=== PATIENT | female | born 1995 | race Caucasian/White ===

== ENCOUNTER 2021-09-28 09:31 | Outpatient (CLI) | payer OTHER ==
[2021-09-28] MEDS ORDERED: GADOBUTROL 7.5 MMOL/7.5 ML VIAL ONE (10:19)
--- NOTE | 2021-09-28 11:35 | MRI Report ---
PROCEDURE: Brain W/WO INDICATIONS: NEOPLASM OF UNSPEICFIED BEHAVIOR OF BRAIN CONTRAST: IV CONTRAST: Gadavist ml: 6.9 TECHNIQUE: Noncontrast axial T1 spin echo, axial T2 fast spin echo, sagittal and axial FLAIR, coronal T2 fast sp in echo, axial gradient echo, axial diffusion and ADC through the brain. After the administration of contrast, axial and coronal T1 spin echo with fat saturation through the brain. COMPARISON: None. FINDINGS: Image quality: Excellent. CSF spaces: Basal cisterns are patent. No extra-axial fluid collections. Ventricles are normal in size and shape. Brain: No midline shift. No intracranial bleeds or masses. No abnormal intracranial enhancement. There is cerebral volume loss for age. There is periventricular white matter chronic small vessel is chemic change. The brainstem appears normal. Diffusion-weighted images demonstrate no acute ischemi c insults. No chronic ischemic insults. Normal intravascular flow voids are present. Skull and face: Calvarial marrow is normal in signal. Orbits appear normal. Sinuses: Small right maxillary sinus retention cyst. Sinuses and mastoids otherwise appear clear. IMPRESSION: 1. No evidence of intracranial neoplasm. If there is prior outside imaging or clinical data documenti ng an intracranial neoplasm, comparison with those studies/information would be helpful for further a ssessment. 2. No acute process. No recent infarct. Reviewed by: Analia Witt MD on 09/28/2021 11:34 AM PDT Approved by: Analia Witt MD on 09/28/2021 11:34 AM PDT Station ID: [id number]
[2021-09-28] MEDS ORDERED: GADOBUTROL 7.5 MMOL/7.5 ML VIAL IVP ONE (16:18)
== END 2021-09-28 09:32 | disposition home or self-care (01) ==
LOC: DI 09:31
PROVIDERS: ATTEND Student in an Organized Health Care Education/Training Program
DX: R93.9 Diagnostic imaging inconclusive due to excess body fat of patient (principal); G93.0 Cerebral cysts; E83.01 Wilson's disease
CPT/HCPCS: 70553; A9585

== ENCOUNTER 2022-02-14 10:45 | Emergency (ER) | payer OTHER ==
[2022-02-14 10:57] VITALS: BP 127/69
--- NOTE | 2022-02-14 11:31 | ED Physician Documentation ---
History of Present Illness - Stated complaint Stated Complaint: BLOODY NOSE, CHEST PX, WEAKNESS - Chief complaint Chief Complaint: Cardiac - History obtained from History obtained from: Patient - History of Present Illness Timing: How many weeks ago (2) - Additonal information Additional information: 26-year-old female presents to the emergency department with cough, nasal congestion and intermittent dyspnea for the past several weeks. She was treated for potential ear infection with antibiotics. She is unsure which 1. She took all antibiotics until gone but is still having a cough and congestion. Occasionally has burning in her chest. Nothing makes it better or worse. Denies any possibility of . Is not breast-feeding. Review of Systems Ten Systems: 10 systems reviewed and negative Constitutional: denies: Fever, Chills Ears: denies: Ear pain Nose: reports: Rhinorrhea / runny nose, Congestion, Other (Occasionally there is blood in her mucus) Cardiac: reports: Chest pain / pressure (States she has a burning in her chest when she coughs). denies: Palpitations Respiratory: reports: Dyspnea, Cough. denies: Wheezing GI: denies: Nausea, Vomiting PD PAST MEDICAL HISTORY - Past Medical History Past Medical History: Yes - Past Surgical History Past Surgical History: No - Present Medications Home Medications: Ambulatory Orders Medication Instructions Recorded Confirmed Cetirizine HCl/Pseudoephedrine 1 each PO BID PRN #30 tab 02/14/22 [Zyrtec-D Tablet] Ibuprofen [Motrin] 800 mg PO Q8H PRN #30 tablet 02/14/22 Propranolol [Inderal] 40 mg PO DAILY 02/14/22 02/14/22 - Allergies Allergies/Adverse Reactions: Allergies Allergy/AdvReac Type Severity Reaction Status Date / Time Penicillins Allergy Rash Verified 02/14/22 10:58 tramadol Allergy Anxiety Verified 02/14/22 10:58 - Living Situation Living Situation: reports: With family Living Arrangement: reports: At home - Social History Does the pt smoke?: No Does the pt have substance abuse?: No - Family History Family history: reports: Non contributory PD ED PE NORMAL - Vitals Vital signs reviewed: Yes - General General: Alert and oriented X 3, No acute distress - HEENT HEENT: PERRL, Ears normal, Moist mucous membranes, Pharynx benign - Neck Neck: Supple, no meningeal sign - Cardiac Cardiac: RRR, Strong equal pulses - Respiratory Respiratory: No respiratory distress, Clear bilaterally - Abdomen Abdomen: Soft, Non tender, Non distended - Back Back: No spinal TTP - Derm Derm: Warm and dry, No rash - Extremities Extremities: No edema - Neuro Neuro: Alert and oriented X 3 - Psych Psych: Normal mood, Normal affect Results - Vitals Vitals: Vital Signs - 24 hr 02/14/22 10:49 Temperature 36.7 C Heart Rate 65 Respiratory 16 Rate Blood Pressure 127/69 O2 Saturation 100 Oxygen O2 Source Room air - EKG (time done) 1051 Rate: Rate (enter#) (67) Rhythm: NSR [place]: Normal Intervals: Normal MT QRS: Normal Ischemia: Normal ST segments - Labs Labs: Laboratory Tests 02/14/22 11:50 Nasal Adenovirus (PCR) DETECTED A Nasal B. parapertussis DNA (PCR) NOT DETECTED Nasal Coronavir 229E PCR NOT DETECTED Nasal Coronavir HKU1 PCR NOT DETECTED Nasal Coronavir NL63 PCR NOT DETECTED Nasal Coronavir OC43 PCR NOT DETECTED Nasal Enterovir/Rhinovir PCR NOT DETECTED Nasal Influenza B PCR NOT DETECTED Nasal Influenza A PCR NOT DETECTED Nasal Parainfluen 1 PCR NOT DETECTED Nasal Parainfluen 2 PCR NOT DETECTED Nasal Parainfluen 3 PCR NOT DETECTED Nasal Parainfluen 4 PCR NOT DETECTED Nasal RSV (PCR) NOT DETECTED Nasal B.pertussis DNA PCR NOT DETECTED Nasal C.pneumoniae (PCR) NOT DETECTED Trung Human Metapneumo PCR NOT DETECTED Nasal M.pneumoniae (PCR) NOT DETECTED Nasal SARS-CoV-2 (PCR) NOT DETECTED - Rads (name of study) cxr Radiology: Final report received, See rad report PD MEDICAL DECISION MAKING - ED course Complexity details: reviewed results, re-evaluated patient, considered differential, d/w patient ED course: Chest x-ray does not show any acute abnormalities. She is positive for rhinovirus. Patient is well-appearing, nontoxic. Afebrile. No hypoxia. No respiratory distress. No indication for antibiotics. We will continue supportive care and have her follow-up with her doctor. Patient counseled regarding signs and symptoms for which I believe and urgent re-evaluation would be necessary. Patient with good understanding of and agreement to plan and is comfortable going home at this time This document was made in part using voice recognition software. While efforts are made to proofread this document, sound alike and grammatical errors may occur. Departure - Departure Disposition: Home, Self Care Clinical Impression: Adenovirus infection Condition: Good Instructions: ED Viral Syndrome Follow-Up: your,doctor in 1 week [Other] [facility] [place] [Provider Group] [facility] [place] [Provider Group] Prescriptions: Ibuprofen [Motrin] 800 mg PO Q8H PRN #30 tablet PRN Reason: PAIN &/OR FEVER Cetirizine HCl/Pseudoephedrine [Zyrtec-D Tablet] 1 each PO BID PRN #30 tab PRN Reason: nasal congestion Comments: Your prescriptions were sent to [facility] in [place]. Please follow-up with your doctor for further care. Please return if you worsen. You have tested positive for adenovirus today. This does not require antibiotics. Maureen recetas fueron enviadas a [facility] en [place]. Por favor, debby un seguimiento con brito mdico para recibir atencin adicional. Por favor, devulvelo si empeoras. Chen dado positivo por adenovirus horobinson. Piqua no requiere antibiticos. Forms: Activity restrictions Discharge Date/Time: 02/14/22 13:21
--- NOTE | 2022-02-14 12:32 | XRAY Report ---
PROCEDURE: Chest 2 View X-Ray INDICATIONS: cough TECHNIQUE: 2 views of the chest were acquired. COMPARISON: None FINDINGS: Surgical changes and devices: None. Lungs and pleura: No pleural effusions or pneumothorax. Lungs are clear. Mediastinum: Mediastinal contours are normal. Heart size is normal. Bones and chest wall: No suspicious bony abnormalities. Soft tissues appear unremarkable. IMPRESSION: No acute cardiopulmonary disease. Reviewed by: Ingrid Caballero MD on 02/14/2022 12:31 PM PST Approved by: Ingrid Caballero MD on 02/14/2022 12:31 PM PST Station ID: [id number]
[2022-02-14 13:01] LABS: B. PARAPERTUSSIS- RESP PCR PAN NOT DETECTED; B. PERTUSSIS- RESP PCR PANEL NOT DETECTED; C. PNEUMONIAE- RESP PCR PANEL NOT DETECTED; CORONAVIRUS 229E-RESP PCR NOT DETECTED; CORONAVIRUS HKU1-RESP PCR NOT DETECTED; CORONAVIRUS NL63-RESP PCR NOT DETECTED; CORONAVIRUS OC43-RESP PCR NOT DETECTED; HUMAN METAPNEUMOVIRUS NOT DETECTED; INFLUENZA A- RESP PCR PANEL NOT DETECTED; INFLUENZA B - RESP PCR PANEL NOT DETECTED; M. PNEUMONIAE- RESP PCR PANEL NOT DETECTED; PARAINFLUENZA VIRUS 1 NOT DETECTED; PARAINFLUENZA VIRUS 2 NOT DETECTED; PARAINFLUENZA VIRUS 3 NOT DETECTED; PARAINFLUENZA VIRUS 4 NOT DETECTED; RHINOVIRUS/ENTEROVIRUS NOT DETECTED; RSV- RESP PCR PANEL NOT DETECTED; SARS-CoV-2 -RESP PCR PANEL NOT DETECTED
== END 2022-02-14 13:21 | disposition home or self-care (01) ==
LOC: ED 10:45
DX: B34.0 Adenovirus infection, unspecified (principal); Z20.822 Contact with and (suspected) exposure to COVID-19
CPT/HCPCS: 87633; 93005; 99284

== ENCOUNTER 2022-07-17 10:16 | Outpatient (CLI) | payer OTHER ==
[2022-07-18 08:47] LABS: BILIRUBIN,URINE NEGATIVE (NEGATIVE); GLUCOSE, URINE (UA) NEGATIVE (NEGATIVE); KETONES,URINE (UA) NEGATIVE (NEGATIVE); LEUKOCYTE ESTERASE, URINE NEGATIVE (NEGATIVE); NITRITE,URINE NEGATIVE (NEGATIVE); OCCULT BLOOD,URINE NEGATIVE (NEGATIVE); PROTEIN,URINE NEGATIVE (NEGATIVE); UROBILINOGEN,URINE 0.2 (NORMAL) E.U./dL (NORMAL)
[2022-07-18 09:07] LABS: BACTERIA,URINE None Seen /HPF (None Seen); CLARITY,URINE CLEAR (CLEAR); RBC,URINE 0-5 /HPF (0-5); SQUAMOUS EPITHELIAL CELL,UR FEW Squamous (<= Few); WBC,URINE 0-3 /HPF (0-5)
[2022-07-18 11:43] LABS: BASOPHILS # (AUTO) 0.1 10^3/uL (0.0-0.1); BASOPHILS % (AUTO) 0.6 %; EOSINOPHILS # (AUTO) 0.1 10^3/uL (0.0-0.7); EOSINOPHILS % (AUTO) 1.3 %; HCT - HEMATOCRIT 38.1 % (37.0-47.0); HGB - HEMOGLOBIN 12.4 g/dL (12.0-16.0); LYMPHOCYTES # (AUTO) 3.3 10^3/uL (1.5-3.5); LYMPHOCYTES % (AUTO) 36.7 %; MEAN CORPUSCULAR HGB CONC 32.5 g/dL (32.0-36.0); MEAN CORPUSCULAR VOLUME 89.2 fL (81.0-99.0); MEAN PLATELET VOLUME 9.8 fL (7.9-10.8); MONOCYTES # (AUTO) 0.8 10^3/uL (0.0-1.0); MONOCYTES % (AUTO) 8.4 %; NEUTROPHILS # (AUTO) 4.7 10^3/uL (1.5-6.6); NEUTROPHILS % (AUTO) 52.4 %; PLT - PLATELET COUNT 327 10^3/uL (130-450); RED BLOOD COUNT 4.27 10^6/uL (4.20-5.40); RED CELL DISTRIBUTION WIDTH 13.3 % (12.0-15.0)
[2022-07-19 06:11] LABS: HBsAG SCREEN Negative (Negative); HCV AB Non Reactive (Non Reactive); HIV SCREEN 4TH GENERATION Non Reactive (Non Reactive); RPR Non Reactive (Non Reactive)
[2022-07-21 10:09] LABS: VARICELLA-ZOSTER AB IGG 2755 index (Immune >165)
== END 2022-07-17 10:17 | disposition home or self-care (01) ==
LOC: LAB 10:16
PROVIDERS: ATTEND Obstetrics & Gynecology
DX: Z34.90 Encounter for supervision of normal pregnancy, unspecified, unspecified trimester (principal)
CPT/HCPCS: 36415; 81001; 85025; 86592; 86762; 86787; 86803; 86850; 86900; 86901; 87086; 87340; 87389

== ENCOUNTER 2022-07-25 22:01 | Outpatient (CLI) | payer OTHER ==
--- NOTE | 2022-07-26 09:05 | Ultrasound Report ---
PROCEDURE: OB First Trimester w/TV INDICATIONS: POSITIVE TEST OUTSIDE/PRIOR DATING DATA: Last menstrual period (LMP): 06/01/2022. LMP-based estimated date of delivery (ANKUR): 03/08/2023. First dating scan (date and location): Today 07/25/2022. Estimated date of delivery (ANKUR) from first dating scan: March 06, 2023 TECHNIQUE: Real-time scanning was performed of the fetus and maternal pelvic organs, with image documentation. Endovaginal scanning was also performed to better visualize the fetus and maternal ovaries. COMPARISON: None relevant FINDINGS: Heart rate is 162 bpm. Mean gestational sac diameter is 2.3. Barksdale-rump length is 1.58 cm corresponding to an ultrasound age of 8 weeks. Bilateral ovarian cysts are present. There is a subcho rionic hemorrhage measuring 1.8 x 1.7 x 2.1 cm. There is also a fibroid measuring 2.1 x 1.9 cm. IMPRESSION: Living intrauterine gestation at 8 weeks of ultrasound age, consistent with reported LMP. Reviewed by: George Messer MD on 07/26/2022 9:04 AM PDT Approved by: George Messer MD on 07/26/2022 9:04 AM PDT Station ID: [id number]
== END 2022-07-25 22:02 | disposition home or self-care (01) ==
LOC: DI 22:01
PROVIDERS: ATTEND Obstetrics & Gynecology
DX: Z34.91 Encounter for supervision of normal pregnancy, unspecified, first trimester (principal)

== ENCOUNTER 2022-08-17 08:00 | Outpatient (CLI) | payer OTHER ==
[2022-08-17 20:56] LABS: CHLAMYDIA TRACHOMATIS DNA NEGATIVE (NEGATIVE); NEISSERIA GONORRHOEAE DNA NEGATIVE (NEGATIVE); TRICHOMONAS VAGINALIS DNA NEGATIVE (NEGATIVE)
== END 2022-08-17 23:59 | disposition home or self-care (01) ==
LOC: LAB 08:00
PROVIDERS: ATTEND Obstetrics & Gynecology
DX: Z11.3 Encounter for screening for infections with a predominantly sexual mode of transmission (principal)
CPT/HCPCS: 87491; 87591; 87661

== ENCOUNTER 2022-10-23 06:56 | Outpatient (CLI) | payer OTHER ==
--- NOTE | 2022-10-23 12:49 | Ultrasound Report ---
PROCEDURE: OB Detailed Eval INDICATIONS: SUPERVISION OF OUTSIDE/PRIOR DATING DATA: Last menstrual period (LMP): 05/05/2022. LMP-based estimated date of delivery (ANKUR): 03/08/2022. First dating scan (date and location): 07/25/2022. Estimated date of delivery (ANKUR) from first dating scan: 03/06/2023. The below data below was generated using the ultrasound ANKUR of 03/06/2023 TECHNIQUE: Real-time scanning was performed of the fetus, with image documentation and biometric measurements. Endovaginal scanning: Not performed COMPARISON: OB Ultrasound 07/25/2022 FINDINGS: General: A single living intrauterine gestation is present. Presentation: Vertex Placenta: Placental position is anterior, without previa. Amniotic fluid index: 12.1 cm, within normal limits for gestational age. heart rate: 132 beats per minute. Maternal cervical canal: 3.6 cm long; normal length is 2.5 cm or more. biometrics: Biparietal diameter: 4.9 cm, 20 weeks 5 days Head circumference: 18.2 cm, 20 weeks 4 days Abdominal circumference: 15.8 cm, 20 weeks 6 days Femur length: 3.4 cm, 20 weeks 5 days Estimated gestational age from initial scan: 20 weeks 6 days Composite gestational age from present scan: 20 weeks 5 days Estimated weight and percentile: 376 g, 40% Measurement variability in biometric dating: +/- 10 days from 12-20 weeks gestation, +/- 2 weeks from 20-30 weeks gestation, +/- 3 weeks at 30 weeks gestation or later. Anatomic survey: Neuro: Ventricles are normal at less than 10 mm. Cisterna magna is normal at 3-11 mm. Cerebellum i s normal in size and morphology. Nuchal skin fold: Normal at less than 6 mm between 14 and 20 weeks gestational age. Face: Nose and lips, facial profile are normal. Spine: No evidence for spina bifida. Heart: 4-chambered heart is present, with normal ventricular outflow tracts. Diaphragm: Diaphragm is intact. Stomach: Left-sided stomach is present. Kidneys: No hydronephrosis. Normal is less than 5 mm in 2nd trimester, less than 7 mm in 3rd trimester. Cord: 3 vessel cord has orthotopic insertion. Bladder: Normal in size. Extremities: All 4 extremities are visualized. IMPRESSION: 1.Single live intrauterine at 20 weeks and 5 days. 2.Normal anatomy scan. Reviewed by: Shamir Robertson MD on 10/23/2022 12:48 PM PDT Approved by: Shamir Robertson MD on 10/23/2022 12:48 PM PDT Station ID: [id number]
== END 2022-10-23 06:57 | disposition home or self-care (01) ==
LOC: DI 06:56
PROVIDERS: ATTEND Nurse Practitioner
DX: O99.891 Other specified diseases and conditions complicating pregnancy (principal); R30.0 Dysuria; Z3A.20 20 weeks gestation of pregnancy
CPT/HCPCS: 81001; 87086

== ENCOUNTER 2022-10-23 08:00 | Outpatient (CLI) | payer OTHER ==
[2022-10-23 12:07] LABS: BILIRUBIN,URINE NEGATIVE (NEGATIVE); GLUCOSE, URINE (UA) NEGATIVE (NEGATIVE); KETONES,URINE (UA) NEGATIVE (NEGATIVE); LEUKOCYTE ESTERASE, URINE NEGATIVE (NEGATIVE); NITRITE,URINE NEGATIVE (NEGATIVE); OCCULT BLOOD,URINE NEGATIVE (NEGATIVE); PROTEIN,URINE NEGATIVE (NEGATIVE); UROBILINOGEN,URINE 0.2 (NORMAL) E.U./dL (NORMAL)
[2022-10-23 12:19] LABS: BACTERIA,URINE Rare /HPF (None Seen); CLARITY,URINE CLEAR (CLEAR); RBC,URINE None Seen /HPF (0-5); SQUAMOUS EPITHELIAL CELL,UR FEW Squamous (<= Few); WBC,URINE 0-3 /HPF (0-5)
== END 2022-10-23 23:59 | disposition home or self-care (01) ==
LOC: LAB.WC 08:00
PROVIDERS: ATTEND Obstetrics & Gynecology
DX: O99.891 Other specified diseases and conditions complicating pregnancy (principal); R30.0 Dysuria
CPT/HCPCS: 81001; 87086

== ENCOUNTER 2022-11-07 17:57 | Emergency (ER) | payer OTHER ==
[2022-11-07 18:14] VITALS: BP 119/81; O2SAT 98
--- NOTE | 2022-11-07 18:19 | ED Physician Documentation ---
History of Present Illness - Stated complaint Stated Complaint: PREG/COUGH/CHEST PX - Chief complaint Chief Complaint: General - History obtained from History obtained from: Patient - Additonal information Additional information: G1, P0 22 weeks gestation has been sick since yesterday with fever, bilateral ear pain and productive cough. No sick contacts. PD PAST MEDICAL HISTORY - Past Surgical History Past Surgical History: No - Present Medications Home Medications: Ambulatory Orders Medication Instructions Recorded Confirmed Azithromycin [Zithromax] 1 tab PO DAILY #6 tablet 11/07/22 Pnv No.95/Ferrous Fum/Folic AC 1 each PO DAILY 11/07/22 11/07/22 [ Tablet] guaiFENesin/CODEINE [Robitussin AC] 5 - 10 ml PO Q6H PRN #120 ml 11/07/22 - Allergies Allergies/Adverse Reactions: Allergies Allergy/AdvReac Type Severity Reaction Status Date / Time Penicillins Allergy Rash Verified 11/07/22 17:59 tramadol Allergy Anxiety Verified 11/07/22 17:59 - Social History Does the pt smoke?: No Smoking Status: Never smoker Does the pt have substance abuse?: No PD ED PE NORMAL - Vitals Vital signs reviewed: Yes - General General: Alert and oriented X 3, No acute distress - HEENT HEENT: Pharynx benign, Other (B OM) - Cardiac Cardiac: RRR, No murmur - Respiratory Respiratory: No respiratory distress, Clear bilaterally - Abdomen Abdomen: Non tender - Neuro Neuro: Alert and oriented X 3, Normal speech Results - Vitals Vitals: Vital Signs - 24 hr 11/07/22 18:00 Temperature 36.7 C Heart Rate 87 Respiratory 18 Rate Blood Pressure 119/81 H O2 Saturation 98 Oxygen O2 Source Room air Departure - Departure Disposition: 01 Home, Self Care Clinical Impression: BOM (bilateral otitis media) Qualifiers: Otitis media type: suppurative Chronicity: acute Recurrence: not specified as recurrent Spontaneous tympanic membrane rupture: without spontaneous rupture Qualified Code(s): H66.003 - Acute suppurative otitis media without spontaneous rupture of ear drum, bilateral Condition: Good Record reviewed to determine appropriate education?: Yes Instructions: ED Otitis Media Acute Adult Prescriptions: guaiFENesin/CODEINE [Robitussin AC] 5 - 10 ml PO Q6H PRN #120 ml PRN Reason: Cough Azithromycin [Zithromax] 1 tab PO DAILY #6 tablet Comments: I sent your prescriptions electronically to [facility] in [place]. Return if not better in a few days, anytime if worse. You can take Tylenol for the aches and pains. You have a Covid test pending. You need to self quarantine until the result is done and negative. Do not leave your house. Do not get near anybody. We will call with a positive result, the fastest way to get a negative result for confirmation though is to go to the hospital website at [email or web address], click on the my [facility] tab and sign up for the patient portal. Forms: PCP List, Activity restrictions
--- OUTSIDE RECORDS SUMMARY | 2022-11-07 18:25 | EXTERNAL MEDICAL SUMMARY RPT | Continuity of Care Document ---
Author Name Unknown Address [address] [place] [address] Phone Organization [facility] Address [address] [phone] Phone Problems date description facility 2022-08-15 18:31 [facility]ad[facility] 2022-09-11 16:24 [facility] 2022-09-12 09:56 [facility] 2022-09-13 16:28 [facility] Results/Labs test date facility value unit notes
[2022-11-07 19:27] LABS: B. PARAPERTUSSIS- RESP PCR PAN NOT DETECTED; B. PERTUSSIS- RESP PCR PANEL NOT DETECTED; C. PNEUMONIAE- RESP PCR PANEL NOT DETECTED; CORONAVIRUS 229E-RESP PCR NOT DETECTED; CORONAVIRUS HKU1-RESP PCR NOT DETECTED; CORONAVIRUS NL63-RESP PCR NOT DETECTED; CORONAVIRUS OC43-RESP PCR NOT DETECTED; HUMAN METAPNEUMOVIRUS NOT DETECTED; INFLUENZA A- RESP PCR PANEL NOT DETECTED; INFLUENZA B - RESP PCR PANEL NOT DETECTED; M. PNEUMONIAE- RESP PCR PANEL NOT DETECTED; PARAINFLUENZA VIRUS 1 NOT DETECTED; PARAINFLUENZA VIRUS 2 NOT DETECTED; PARAINFLUENZA VIRUS 3 NOT DETECTED; PARAINFLUENZA VIRUS 4 NOT DETECTED; RHINOVIRUS/ENTEROVIRUS NOT DETECTED; RSV- RESP PCR PANEL NOT DETECTED; SARS-CoV-2 -RESP PCR PANEL NOT DETECTED
== END 2022-11-07 18:29 | disposition home or self-care (01) ==
LOC: ED 17:57
DX: H66.003 Acute suppurative otitis media without spontaneous rupture of ear drum, bilateral (principal); Z20.822 Contact with and (suspected) exposure to COVID-19
CPT/HCPCS: 87633; 99283

== ENCOUNTER 2022-11-11 07:18 | Outpatient (CLI) | payer OTHER ==
--- NOTE | 2022-11-11 10:32 | Ultrasound Report ---
PROCEDURE: Abdomen Complete INDICATIONS: ABD PAIN IN TECHNIQUE: Real-time scanning was performed of the abdominal and retroperitoneal organs, with image documentatio n. COMPARISON: None. FINDINGS: Liver: Liver is normal in size and homogeneous in echotexture. Gallbladder: Unremarkable. Biliary ducts: Intrahepatic bile ducts are non-dilated. Extrahepatic bile duct caliber measures 2 m m. Normal is 6-7 mm or less in diameter, or 10 mm or less post-cholecystectomy. Pancreas: Visualized portions of the pancreas are sonographically normal. Spleen: Spleen is normal in size and homogeneous in echotexture. Kidneys: Kidneys are normal in size and echotexture. Right kidney measures 9.5 cm long; left kidney measures 10.6 cm long. Focal echogenicity noted in the lower pole left kidney measures [address] Aorta: Visualized aorta is normal in caliber at less than 3 cm. Iliacs: Proximal common iliac arteries are normal in caliber at less than 2.5 cm. IVC: Intrahepatic inferior vena cava is patent. Miscellaneous: No free abdominal fluid. IMPRESSION: No acute ultrasound findings. No hydronephrosis. 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
== END 2022-11-11 07:19 | disposition home or self-care (01) ==
LOC: DI 07:18
PROVIDERS: ATTEND Obstetrics & Gynecology
DX: O99.891 Other specified diseases and conditions complicating pregnancy (principal); R10.10 Upper abdominal pain, unspecified; Z3A.00 Weeks of gestation of pregnancy not specified

== ENCOUNTER 2022-12-12 17:15 | Outpatient (CLI) | payer OTHER ==
[2022-12-12 20:42] LABS: HCT - HEMATOCRIT 37.1 % (37.0-47.0); HGB - HEMOGLOBIN 12.1 g/dL (12.0-16.0); MEAN CORPUSCULAR HEMOGLOBIN 29.7 pg (27.0-31.0); MEAN CORPUSCULAR HGB CONC 32.6 g/dL (32.0-36.0); MEAN CORPUSCULAR VOLUME 91.2 fL (81.0-99.0); MEAN PLATELET VOLUME 9.8 fL (7.9-10.8); RED BLOOD COUNT 4.07 10^6/uL (4.20-5.40); RED CELL DISTRIBUTION WIDTH 13.6 % (12.0-15.0); WHITE BLOOD COUNT 9.6 x10^3/uL (4.8-10.8)
== END 2022-12-12 17:16 | disposition home or self-care (01) ==
LOC: LAB.N 17:15
PROVIDERS: ATTEND Obstetrics & Gynecology
DX: Z34.90 Encounter for supervision of normal pregnancy, unspecified, unspecified trimester (principal)
CPT/HCPCS: 36415; 82950; 85025; 85027; 86850

== ENCOUNTER 2023-01-29 08:00 | Outpatient (CLI) | payer OTHER ==
[2023-01-29 16:09] LABS: BILIRUBIN,URINE NEGATIVE (NEGATIVE); GLUCOSE, URINE (UA) NEGATIVE (NEGATIVE); KETONES,URINE (UA) NEGATIVE (NEGATIVE); LEUKOCYTE ESTERASE, URINE NEGATIVE (NEGATIVE); NITRITE,URINE NEGATIVE (NEGATIVE); OCCULT BLOOD,URINE NEGATIVE (NEGATIVE); PROTEIN,URINE NEGATIVE (NEGATIVE); UROBILINOGEN,URINE 0.2 (NORMAL) E.U./dL (NORMAL)
[2023-01-29 16:23] LABS: BACTERIA,URINE None Seen /HPF (None Seen); CLARITY,URINE CLEAR (CLEAR); RBC,URINE 0-5 /HPF (0-5); SQUAMOUS EPITHELIAL CELL,UR RARE Squamous (<= Few); WBC,URINE 0-3 /HPF (0-5)
== END 2023-01-29 23:59 | disposition home or self-care (01) ==
LOC: LAB.WC 08:00
PROVIDERS: ATTEND Obstetrics & Gynecology
DX: Z34.90 Encounter for supervision of normal pregnancy, unspecified, unspecified trimester (principal); Z3A.32 32 weeks gestation of pregnancy
CPT/HCPCS: 81001; 87077; 87086

== ENCOUNTER 2023-02-12 08:00 | Outpatient (CLI) | payer OTHER | END 2023-02-12 23:59 | disposition home or self-care (01) | LOC: LAB.WC 08:00 | PROVIDERS: ATTEND Obstetrics & Gynecology | DX: Z36.85 Encounter for antenatal screening for Streptococcus B (principal) | CPT/HCPCS: 87081; 87797 ==

== ENCOUNTER 2023-02-28 02:07 | Outpatient (CLI) | payer OTHER ==
[2023-02-28 02:47] VITALS: O2SAT 99
[2023-02-28 05:40] VITALS: BP 123/73
--- NOTE | 2023-03-13 16:24 | PROCEDURE REPORT ---
- HPI Current EDU 03/08/23 Gestation 38 Weeks and 6 Days 1 Para 0 Vital Signs Temperature 98.8 F 02/28/23 02:23 Heart Rate 75 02/28/23 02:23 Respiratory Rate 18 02/28/23 02:23 Blood Pressure 124/77 02/28/23 02:23 O2 Saturation 99 02/28/23 02:23 Temperature 98.8 F 02/28/23 05:15 Heart Rate 62 02/28/23 05:15 Respiratory Rate 18 02/28/23 05:15 Blood Pressure 123/73 02/28/23 05:15 O2 Saturation 99 02/28/23 05:15 If not protocol: Oxygen Flow, liters/minute - NST Procedure NST Procedure Start Date 02/28/23 Start Time 02:18 Stop Time 02:48 Vibroacoustic Stimulation Used Yes Patient States Movement Yes - Results and Plan Plan: Patient is a 28-year-old G1, P0 at 38 weeks gestation here for contractions here for contractions NST Performed 02/28/2023 NST Read 02/28/2023 FHT: 125 bpm baseline, moderate variability, accelerations present, no decelerations. Reactive NST [place]: Every 6 to 8 minutes Diagnosis 38 weeks gestation Early labor Continue with scheduled NST.
== END 2023-02-28 05:20 | disposition home or self-care (01) ==
LOC: WFO 02:07 → FBP 02:09 → WFO 05:20
PROVIDERS: ATTEND Obstetrics & Gynecology
DX: Z34.03 Encounter for supervision of normal first pregnancy, third trimester (principal)
CPT/HCPCS: 59025; 99215

== ENCOUNTER 2023-03-01 03:39 | Outpatient (CLI) | payer OTHER ==
[2023-03-01 04:16] VITALS: O2SAT 98
[2023-03-01] MEDS ORDERED: hydrOXYzine PAMOATE 25 MG CAPSULE PO PRN (04:29)
[2023-03-01] MEDS ORDERED: ONDANSETRON ODT 4 MG TABLET TL SCH (04:50)
[2023-03-01] MEDS ORDERED: hydrOXYzine 50 MG/ML VIAL IM SCH (05:50)
[2023-03-01 05:57] VITALS: BP 125/77
--- NOTE | 2023-03-07 09:51 | PROCEDURE REPORT ---
- HPI Current EDU 03/08/23 Gestation 39 Weeks and 0 Days 1 Para 0 Vital Signs Temperature 99.7 F 03/01/23 03:53 Heart Rate 64 03/01/23 03:53 Respiratory Rate 20 03/01/23 03:53 Blood Pressure 126/77 03/01/23 03:53 O2 Saturation 98 03/01/23 03:53 Temperature 99.7 F 03/01/23 05:00 Heart Rate 78 03/01/23 05:00 Respiratory Rate 18 03/01/23 05:00 Blood Pressure 125/77 03/01/23 05:00 O2 Saturation 98 03/01/23 03:53 If not protocol: Oxygen Flow, liters/minute - NST Procedure NST Procedure Start Date 03/01/23 Start Time 04:20 Stop Time 04:55 Vibroacoustic Stimulation Used No Patient States Movement Yes - Results and Plan Plan: Patient is a 28-year-old G1, P0 at 39 weeks gestation here for scheduled NST. NST Performed 03/01/2023 NST Read 03/01/2023 FHT: 120 bpm baseline, moderate variability, accelerations present, no decelerations. Reactive NST [place]: 3-5 Diagnosis 39 weeks gestation Early labor Continue with scheduled NST.
== END 2023-03-01 05:15 | disposition home or self-care (01) ==
LOC: WFO 03:39 → FBP 03:42 → WFO 05:15
PROVIDERS: ATTEND Obstetrics & Gynecology
DX: Z34.93 Encounter for supervision of normal pregnancy, unspecified, third trimester (principal); Z3A.39 39 weeks gestation of pregnancy
CPT/HCPCS: 59025; 99215

== ENCOUNTER 2023-03-01 20:45 | Inpatient (IN) | payer OTHER ==
[2023-03-01] MEDS ORDERED: LACTATED RINGERS 1,000 ML IV PRN (21:29)
[2023-03-01] MEDS ORDERED: lidocaine 1% 20 ML MDV ID PRN (21:29)
[2023-03-01] MEDS ORDERED: METHYLERGONOVINE 0.2 MG/ML VIAL IM PRN (21:29)
[2023-03-01] MEDS ORDERED: CARBOPROST TROMETHAMINE 250 MCG/ML AMP IM PRN (21:29)
[2023-03-01] MEDS ORDERED: OXYTOCIN/SODIUM CHLORIDE 500 ML IV PRN (21:29)
[2023-03-01] MEDS ORDERED: hydrALAZINE INJ 20 MG/ML VIAL IVP PRN ×2 (21:29)
[2023-03-01] MEDS ORDERED: NIFEdipine 10 MG CAPSULE PO PRN (21:29)
[2023-03-01] MEDS ORDERED: fentaNYL 100 MCG/2 ML VIAL IVP PRN (21:29)
[2023-03-01] MEDS ORDERED: SODIUM CHLORIDE FLUSH 0.9% 10 ML SYRINGE IVP PRN (21:29)
[2023-03-01] MEDS ORDERED: OXYTOCIN 10 UNIT/ML VIAL IM PRN (21:29)
[2023-03-01] MEDS ORDERED: miSOPROStoL 200 MCG TABLET PR PRN (21:29)
[2023-03-01] MEDS ORDERED: miSOPROStoL 200 MCG TABLET BC PRN (21:29)
[2023-03-01] MEDS ORDERED: TRANEXAMIC ACID IN NACL 1,000 MG/100 ML BAG IV PRN (21:29)
[2023-03-01] MEDS ORDERED: LABETALOL 20 MG/4 ML SYRINGE IVP PRN ×3 (21:29)
[2023-03-01] MEDS ORDERED: TERBUTALINE 1 MG/ML VIAL SUBQ PRN (21:29)
--- NOTE | 2023-03-01 21:33 | HISTORY & PHYSICAL EXAMINATION ---
Admit History - Visit Reason Visit Reason: Contractions - : 1 Parity: 0 Risk/History: positive: None Smoking Status: Never smoker - Mother's Labs Mother's Blood Type: positive: O Mother's RH: positive: Positive GBS: positive: Group B Strep Positive Rubella Status: positive: Immune - Other Maternal History Other Maternal History: HPI: 28-year-old G1, P0 at 39 weeks 0 days gestation admitted for augmentation of la bor she is been jaja regularly for 2 days, now every 2 to 3 minutes. She has good movement. Denies loss of fluid. No VILLANUEVA/BV or RUQP. No vaginal bleeding. Denies nausea and vomiting. Denies urinary urgency or dysuria. Her primary language is [place]. She is comfortable in Greek, but partner does help translate on occasion. All other symptoms reviewed and were negative except per HPI. Course LMP: 06/01/2022 ANKUR by LMP: 03/08/2023 US Date 07/25/2022, US Age 8 weeks, ANKUR by ultrasound: 03/06/2023 Final ANKUR: 03/08/2023 TAJIK SPEAKING Lighheadedness: 2 episodes without presyncope. Usually after prolonged sitting - resolved. Some belly pain - suggested faja. 19 Feb 2023. will bring plan to hospital on day of labor. Cyndi >7#, agaloco, Feb, Pre- Weight:163.4 BMI: 30.99 Blood type: O+ Rh: Positive Antibody: Negative CBC: PLT 327 HCT 38.1 HGB 12.4 RUB:Immune VZV:Immune HBsAg: Negative HepC: Non Reactive RPR/AB-EIA: Non Reactive HIV: Non Reactive PAP 2020- will get GC/CT:negative HSV: denies self/partner Genetic testing:declined Covid:X2 Flu given 11/20/22 RSV: GIVEN 01/29 FAS: 10/23/2022 Placenta: Anterior w/o previa Cord: 3 vessel ELDON: 12.1 EFW: 376g; 40%tile 50gm OGCT: 72 TDAP:12/18 Breast Pump:already has one Antibody screen:NEG 3rd trimester H/H 12.1/37.1 plt 330 GBS:PCN allergy- 02/12 POSITIVE Delivery plan: , Spontaneous labor, no epidural Contraception:Unsure PMH No pertinent medical history PSH No previous surgeries OB History G1, P0 SH Denies tobacco, alcohol, drugs Family History Denies pertinent family history Allergies Penicillin: Tachycardia Tramadol redness and swelling Dipyrone: Rash, tachycardia Medications vitamins Famotidine Physical exam: General: Alert, oriented, no acute distress Head: Normal cephalic atraumatic Eyes: PERRLA, extraocular motions intact. Respiratory: Normal rate of respiration. No accessory muscle use, normal respiratory effort. Cardiovascular: Regular rate and rhythm Abdomen: Gravid, nontender, nondistended Extremities: Normal range of motion Neuro: Oriented x3. Normal movements Psych: Appropriate mood and affect. Normal judgment and insight SVE: 5/90/-2 FHT: 140 beats per baseline, moderate variability, accelerations present, no decelerations. Pacheco: Every 2 to 3 minutes Plan Latent labor: Currently 5 cm, mild change the last couple of days. Will admit for augmentation of labor. Epidural at patient's request. Anticipate AROM, anticipate 39 weeks gestation Routine labor care GBS positive -Penicillin allergy, sensitive to clindamycin and erythromycin. -Plan for clindamycin 900 mg every 8 hours - HPI Vital Signs Temperature 98.5 F 03/01/23 20:55 Heart Rate 91 03/01/23 20:55 Respiratory Rate 16 03/01/23 20:55 Blood Pressure 137/89 H 03/01/23 20:55 Temperature 98.5 F 03/01/23 20:55 Heart Rate 91 03/01/23 20:55 Respiratory Rate 16 03/01/23 20:55 Blood Pressure 137/89 H 03/01/23 20:55 O2 Saturation If not protocol: Oxygen Flow, liters/minute - NST Procedure NST Procedure Start Time 04:20 Stop Time 04:55 Meds/Allgy - Home Medications Home Medications: Ambulatory Orders Medication Instructions Recorded Confirmed Azithromycin [Zithromax] 1 tab PO DAILY #6 tablet 11/07/22 Pnv No.95/Ferrous Fum/Folic AC 1 each PO DAILY 11/07/22 11/07/22 [ Tablet] guaiFENesin/CODEINE [Robitussin AC] 5 - 10 ml PO Q6H PRN #120 ml 11/07/22 - Allergies Allergies/Adverse Reactions: Allergies Allergy/AdvReac Type Severity Reaction Status Date / Time Penicillins Allergy Rash Verified 11/07/22 17:59 tramadol Allergy Anxiety Verified 11/07/22 17:59 Physical - Abdominal Exam Vital Signs: Temp Pulse Resp BP Pulse Ox O2 Flow Rate 98.5 F 91 16 137/89 H 03/01/23 20:55 03/01/23 20:55 03/01/23 20:55 03/01/23 20:55 Plan for Labor - Plan For Labor I expect patient to be DC'd or transferred within 96 hours.: Yes
[2023-03-01 21:57] LABS: BASOPHILS % (AUTO) 0.3 %; EOSINOPHILS % (AUTO) 0.1 %; HCT - HEMATOCRIT 42.3 % (37.0-47.0); HGB - HEMOGLOBIN 13.8 g/dL (12.0-16.0); LYMPHOCYTES # (AUTO) 1.9 10^3/uL (1.5-3.5); LYMPHOCYTES % (AUTO) 12.6 %; MEAN CORPUSCULAR HEMOGLOBIN 29.7 pg (27.0-31.0); MEAN CORPUSCULAR HGB CONC 32.6 g/dL (32.0-36.0); MEAN CORPUSCULAR VOLUME 91.2 fL (81.0-99.0); MEAN PLATELET VOLUME 9.6 fL (7.9-10.8); MONOCYTES # (AUTO) 0.8 10^3/uL (0.0-1.0); MONOCYTES % (AUTO) 5.3 %; NEUTROPHILS # (AUTO) 11.9 10^3/uL (1.5-6.6); NEUTROPHILS % (AUTO) 81.1 %; PLT - PLATELET COUNT 299 10^3/uL (130-450); RED BLOOD COUNT 4.64 10^6/uL (4.20-5.40); WHITE BLOOD COUNT 14.7 x10^3/uL (4.8-10.8)
[2023-03-01] MEDS ORDERED: SODIUM CHLORIDE FLUSH 0.9% 10 ML SYRINGE IVP SCH (22:00)
[2023-03-01] MEDS ORDERED: LACTATED RINGERS 1,000 ML IV SCH (22:00)
[2023-03-01] MEDS: CLINDAMYCIN 900 MG/50 ML 900 MG/50 ML BAG IV SCH (22:11)
[2023-03-01] MEDS ORDERED: ROPIVACAINE 0.2% 200 MG/100 ML BAG EP ONE (22:23)
[2023-03-01] MEDS ORDERED: ONDANSETRON 4 MG/2 ML VIAL IVP PRN ×2 (22:30→23:36)
[2023-03-01] MEDS ORDERED: ONDANSETRON 4 MG/2 ML VIAL ONE (22:32)
[2023-03-01] MEDS ORDERED: LIDOCAINE 2%-EPI 1:100000 20 ML MDV ONE (22:54)
[2023-03-01] MEDS ORDERED: SODIUM CHLORIDE 0.9% 10 ML VIAL IVP ONE ×2 (22:57→23:39)
[2023-03-01] MEDS ORDERED: ROPIVACAINE 0.2% 200 MG/100 ML BAG EP PRN (23:36)
[2023-03-01] MEDS ORDERED: METOCLOPRAMIDE 10 MG/2 ML VIAL IVP PRN (23:36)
[2023-03-01] MEDS ORDERED: diphenhydrAMINE INJ 50 MG/ML VIAL IVP PRN (23:36)
[2023-03-01] MEDS ORDERED: NALOXONE 0.4 MG/ML VIAL IVP PRN (23:36)
[2023-03-01] MEDS ORDERED: NALBUPHINE 10 MG/ML AMP IVP PRN (23:36)
[2023-03-01] MEDS ORDERED: LACTATED RINGERS 500 ML IV ONE (23:36)
[2023-03-01] MEDS ORDERED: ePHEDrine 50 MG/ML VIAL IVP PRN (23:36)
[2023-03-01] MEDS ORDERED: LIDOCAINE 2%-EPI 1:100000 20 ML MDV SUBQ ONE (23:38)
--- NOTE | 2023-03-01 23:43 | ANESTHESIA ---
Pre-Anesthesia VS, & Labs - Diagnosis active labor - Procedure labor epidural Vital Signs: Temp Pulse Resp BP Pulse Ox O2 Flow Rate 36.9 C 91 16 137/89 H 03/01/23 21:48 03/01/23 21:48 03/01/23 21:48 03/01/23 21:48 Height: 5 ft 1 in Weight (kg): 79.746 kg Body Mass Index: 33.2 BMI Classification: Obese - NPO Other (clears from now until delivery) - Is Patient ?: Yes - Lab Results Current Lab Results: Laboratory Tests 03/01/23 21:47: Blood Type O POSITIVE, Antibody Screen NEGATIVE 03/01/23 21:47: WBC 14.7 H, RBC 4.64, Hgb 13.8, Hct 42.3, MCV 91.2, MCH 29.7, MCHC 32.6, RDW 14.0, Plt Count 299, MPV 9.6, Neut # (Auto) 11.9 H, Lymph # (Auto) 1.9, [place] # (Auto) 0.8, Eos # (Auto) 0.0, Baso # (Auto) 0.0, Absolute Nucleated RBC 0.00, Nucleated RBC % 0.0 Fish Bones: 03/01/23 21:47 Home Medications and Allergies Active Medications Carboprost Tromethamine (Carboprost Tromethamine 250 Mcg/Ml Amp) 250 mcg IM .ONCE PRN PRN Reason: Hemorrhage Diphenhydramine HCl (Diphenhydramine Inj 50 Mg/Ml Vial) 12.5 - 25 mg IVP Q6HR PRN PRN Reason: ITCHING Ephedrine Sulfate (Ephedrine 50 Mg/Ml Vial) 5 mg IVP Q5M PRN PRN Reason: For SBP<100;give until SBP>100 Fentanyl (Fentanyl 100 Mcg/2 Ml Vial) 50 mcg IVP Q1H PRN PRN Reason: Severe Pain (score 7-10) Hydralazine HCl (Hydralazine Inj 20 Mg/Ml Vial) 10 mg IVP .ONCE PRN; Protocol PRN Reason: SBP> or= 160 OR DBP> or= 110 Hydralazine HCl (Hydralazine Inj 20 Mg/Ml Vial) 5 - 10 mg IVP Q20M PRN; Protocol PRN Reason: SBP> or= 160 OR DBP> or= 110 Oxytocin/Sodium Chloride (Pitocin/Sodium Chloride) 500 mls @ 999 mls/hr IV PRN PRN; Protocol PRN Reason: POST- HEMORR PREVENTION Tranexamic Acid (Tranexamic 1,000 Mg/100ml-Nacl) 1,000 mg in 100 mls @ 600 mls/hr IV Q30M PRN PRN Reason: EBL >1200mL and within 3hr Lactated Ringer's (Lr) 1,000 mls @ 125 mls/hr IV .Q8H PATTI Last Admin: 03/01/23 22:13 Dose: 125 mls/hr Lactated Ringer's (Lr) 1,000 mls @ 999 mls/hr IV PRN PRN PRN Reason: PER PHYSICIAN ORDER Clindamycin/Sodium Chloride (Cleocin 900 Mg/50 Ml) 900 mg in 50 mls @ 50 mls/hr IV Q8HR [facility] Last Admin: 03/01/23 22:11 Dose: 50 mls/hr Lactated Ringer's (Lr) 500 mls @ 999 mls/hr IV ONCE ONE Stop: 03/02/23 00:06 Ropivacaine (Naropin 0.2%) 200 mg in 100 mls @ 0 mls/hr EP PRN PRN; Protocol PRN Reason: PAIN Labetalol HCl (Labetalol 20 Mg/4 Ml Syringe) 20 mg IVP .ONCE PRN; Protocol PRN Reason: SBP> or= 160 OR DBP> or= 110 Labetalol HCl (Labetalol 20 Mg/4 Ml Syringe) 20 - 80 mg IVP Q10M PRN; Protocol PRN Reason: SBP> or= 160 OR DBP> or= 110 Labetalol HCl (Labetalol 20 Mg/4 Ml Syringe) 20 - 40 mg IVP Q10M PRN; Protocol PRN Reason: SBP> or= 160 OR DBP> or= 110 Lidocaine HCl (Lidocaine 1% 20 Ml Mdv) 20 ml ID .ONCE PRN PRN Reason: PERINEAL REPAIR Stop: 03/04/23 21:29 Lidocaine/Epinephrine (Lidocaine 2%-Epi 1:053321 20 Ml Mdv) 1 ml SUBQ ONCE ONE Stop: 03/01/23 23:39 Methylergonovine Maleate (Methylergonovine 0.2 Mg/Ml Vial) 0.2 mg IM .ONCE PRN PRN Reason: Hemorrhage Metoclopramide HCl (Metoclopramide 10 Mg/2 Ml Vial) 10 mg IVP Q6HR PRN PRN Reason: Nausea / Vomiting Misoprostol (Misoprostol 200 Mcg Tablet) 600 mcg BC .ONCE PRN PRN Reason: Hemorrhage Misoprostol (Misoprostol 200 Mcg Tablet) 800 mcg NM .ONCE PRN PRN Reason: Hemorrhage Nalbuphine HCl (Nalbuphine 10 Mg/Ml Amp) 2.5 - 5 mg IVP Q4H PRN PRN Reason: ITCHING Naloxone HCl (Naloxone 0.4 Mg/Ml Vial) 0.1 mg IVP Q2M PRN PRN Reason: RR<8 Nifedipine (Nifedipine 10 Mg Capsule) 10 - 20 mg PO Q20M PRN; Protocol PRN Reason: SBP> or= 160 OR DBP> or= 110 Ondansetron HCl (Ondansetron 4 Mg/2 Ml Vial) 4 mg IVP Q6HR PRN PRN Reason: Nausea / Vomiting Last Admin: 03/01/23 22:51 Dose: 4 mg Ondansetron HCl (Ondansetron 4 Mg/2 Ml Vial) 4 mg IVP Q6HR PRN PRN Reason: Nausea / Vomiting Oxytocin (Oxytocin 10 Unit/Ml Vial) 10 unit IM .ONCE PRN PRN Reason: Step One if no IV access. Sodium Chloride (Sodium Chloride Flush 0.9% 10 Ml Syringe) 10 ml IVP Q8H PATTI Sodium Chloride (Sodium Chloride Flush 0.9% 10 Ml Syringe) 10 ml IVP PRN PRN PRN Reason: NEEDED PER PROVIDER ORDERS Last Admin: 03/01/23 22:11 Dose: 10 ml Terbutaline Sulfate (Terbutaline 1 Mg/Ml Vial) 0.25 mg SUBQ .ONCE PRN PRN Reason: Tachystole Pnv No.95/Ferrous Fum/Folic AC [ Tablet] 1 each PO DAILY 11/07/22 Allergies/Adverse Reactions: Allergies Allergy/AdvReac Type Severity Reaction Status Date / Time Penicillins Allergy Rash Verified 11/07/22 17:59 tramadol Allergy Anxiety Verified 11/07/22 17:59 Anes History & Medical History - Anesthetic History Anesthesia Complications: reports: No previous complications - Medical History Cardiovascular: reports: None Pulmonary: reports: None Smoking Status: Never smoker History of Cancer?: No - Obstetrical History : 1 Parity: 0 Events: reports: None Exam General: Alert, Oriented x3 Dental: WNL Mouth Opening: Greater than 4 Fingerbreadths Neck Mobility: Normal Mallampati classification: II Thyromental Distance: greater than 6 cm Respiratory: Lungs clear Cardiovascular: Regular rate Plan Anesthesia Type: Epidural Consent for Procedure(s) Verified and Reviewed: Yes Code Status: Attempt Resuscitation ASA classification: 2-Mild systemic disease Is this case an emergency?: No
[2023-03-02] MEDS: CLINDAMYCIN 900 MG/50 ML 900 MG/50 ML BAG IV SCH (05:44)
[2023-03-02] MEDS ORDERED: ONDANSETRON 4 MG/2 ML VIAL IVP PRN (06:34)
[2023-03-02] MEDS ORDERED: CALCIUM CARBONATE CHEW 500 MG TABLET PO PRN (06:34)
[2023-03-02] MEDS ORDERED: SIMETHICONE CHEW 80 MG TABLET PO PRN (06:34)
--- NOTE | 2023-03-02 06:40 | DELIVERY NOTE ---
Delivery Note - Labor Labor: positive: Augmented by ARM - Infant Delivery Method Delivery Method: positive: Spontaneous vaginal delivery - Presentation Presentation: positive: Vertex - Nuchal Cord Nuchal Cord: positive: None - Anesthetic Anesthetic Type: - Amniotic Fluid Description Amniotic Fluid Description: positive: Thick meconium - Episiotomy Type Episiotomy Type: positive: None - Laceration Laceration: positive: Labial (Bilateral) - Suture Suture Type: positive: Vicryl (3-0), Chromic (3-0) - Delivery Outcome Delivery Outcome: positive: Livebirth - [place]: positive: [place] used sex: positive: Female - Cord Cord: positive: 3 vessels - Placenta Placenta: positive: Intact - Estimated Blood Loss Estimated Blood Loss (in cc): 300 - Post Delivery Events Post Delivery Events: positive: No post delivery events - Delivery Comments (Free Text/Narrative) Delivery Comments (Free Text/Narrative): Preoperative Diagnoses 39 weeks gestation Term labor GBS positive Postoperative Diagnoses Same Delivery of live garcia Status post spontaneous vaginal delivery Patient presented after several visits of late in labor. She was 5 cm and requested augmentation. She received an epidural for pain control. AROM was performed with moderate amount of thick meconium stained fluid. She progressed without further augmentation until complete and the delivery team was called. Delivery Summary: Patient was placed in the dorsal lithotomy position. Upon maternal pushing the head was delivered atraumatically followed by the anterior shoulder, posterior shoulder, then the remainder of the infant's body. A female was delivered with APGARS of 8 at 1 minute and 9 at 5 minutes. The infant was placed on its mother's chest . After the cord finished pulsating, the umbilical cord was clamped times two and cut. The placenta delivered intact with three vessel cord. Placenta was not sent to pathology. Thirty units of Pitocin were added to the IV fluid and allowed to run freely. Uterine massage was performed until uterus was deemed firm. Upon inspection of the perineum, she had bilateral labial lacerations. The right labia was repaired with a running suture of 3-0 Vicryl. The left labia minora was torn and was reapproximated and repaired with a running suture of 3-0 chromic. An additional apical suture was placed to reapproximate. Upon re- inspection the patient was hemostatic. Uterus again massaged and found to be firm. Needle and sponge counts were correct. Patient was stable and allowed to recover in L&D room. Infant was stable and remained in room with mother. weight is pending at this time.
[2023-03-02] MEDS ORDERED: LACTATED RINGERS 1,000 ML IV SCH (07:00)
[2023-03-02] MEDS: ACETAMINOPHEN 500 MG TABLET PO SCH ×2 (07:46→17:06)
[2023-03-02] MEDS: IBUPROFEN 600 MG TABLET PO SCH ×3 (07:46→21:42)
--- NOTE | 2023-03-02 16:09 | PROVIDER PROGRESS NOTE ---
Subjective - Prog Note Date Prog Note Date: 03/02/23 Prog Note Time: 16:08 - Subjective Subjective: Doing well pp. no fevers, chills, dizziness. caring for her baby with her . Objective - Vital Signs/Intake & Output Vital Signs: Vital Signs x48h Temp Pulse Resp BP Pulse Ox 03/02/23 12:22 97.5 F L 89 20 108/64 98 03/02/23 10:05 98.1 F 105 H 20 129/68 96 03/02/23 09:00 99.3 F 110 H 20 110/89 H 98 03/02/23 08:30 100.4 F H 111 H 23 126/82 H 97 Intake & Output: Intake & Output 02/27/23 02/28/23 03/01/23 03/02/23 23:59 23:59 23:59 23:59 Intake Total 50 1483.25 Output Total 2972 Balance 50 -1488.75 - Lab Results Fish Bones: 03/01/23 21:47 Other Labs: Lab Results x24hrs 03/01/23 03/01/23 Range/Units 21:47 21:47 WBC 14.7 H (4.8-10.8) x10^3/uL RBC 4.64 (4.20-5.40) 10^6/uL Hgb 13.8 (12.0-16.0) g/dL Hct 42.3 (37.0-47.0) % MCV 91.2 (81.0-99.0) fL MCH 29.7 (27.0-31.0) pg MCHC 32.6 (32.0-36.0) g/dL RDW 14.0 (12.0-15.0) % Plt Count 299 (130-450) 10^3/uL MPV 9.6 (7.9-10.8) fL Neut # (Auto) 11.9 H (1.5-6.6) 10^3/uL Lymph # (Auto) 1.9 (1.5-3.5) 10^3/uL [place] # (Auto) 0.8 (0.0-1.0) 10^3/uL Eos # (Auto) 0.0 (0.0-0.7) 10^3/uL Baso # (Auto) 0.0 (0.0-0.1) 10^3/uL Absolute Nucleated RBC 0.00 x10^3/uL Nucleated RBC % 0.0 /100WBC Blood Type O POSITIVE Antibody Screen NEGATIVE
[2023-03-02] MEDS: DOCUSATE SODIUM 100 MG CAPSULE PO PRN (21:42)
[2023-03-03] MEDS: ACETAMINOPHEN 500 MG TABLET PO SCH ×2 (01:03→08:46)
[2023-03-03] MEDS: IBUPROFEN 600 MG TABLET PO SCH ×2 (07:58→13:57)
[2023-03-03] MEDS: DOCUSATE SODIUM 100 MG CAPSULE PO PRN (08:46)
--- NOTE | 2023-03-03 10:56 | DISCHARGE SUMMARY ---
"Discharge Summary Admit Date: 03/01/23 Discharge Date: 03/03/23 Discharging Provider: Casey Code Status: Attempt Resuscitation Condition at Discharge: Good Discharge Disposition: 01 Home, Self Care - DIAGNOSES Admission Diagnoses: s/p term vaginal delivery 03/02. - HPI History of Present Illness: admitted for labor augmentation. - CONSULTS | PROCEDURES Procedures: vaginal delivery - HOSPITAL COURSE Hospital Course: admitted and ROM done. labored and had an uncomplicated vaginal delivery 03/02. - ALLERGIES Allergies/Adverse Reactions: Allergies Allergy/AdvReac Type Severity Reaction Status Date / Time Penicillins Allergy Rash Verified 11/07/22 17:59 tramadol Allergy Anxiety Verified 11/07/22 17:59 - MEDICATIONS Home Medications: Ambulatory Orders Medication Instructions Recorded Confirmed Pnv No.95/Ferrous Fum/Folic AC 1 each PO DAILY 11/07/22 11/07/22 [ Tablet] Docusate Sodium 100Mg Capsule 100 - 200 mg PO BID PRN #60 cap 03/03/23 [Colace 100Mg Capsule] Ibuprofen [Motrin] 600 mg PO Q6H PRN #30 tab 03/03/23 - PHYSICAL EXAM AT DISCHARGE General Appearance: positive: No acute distress Abdomen: positive: Non-tender Extremities: positive: Non-tender - LABS Result Diagrams: 03/01/23 21:47 - FOLLOW UP Follow Up: 1 week"
[2023-03-03 14:51] VITALS: BP 119/66; O2SAT 100
--- NOTE | 2023-03-03 18:41 | Labor Flowsheet ---
Labor Flowsheet Datetime Report Generated by CPN: 03/03/2023 18:41 Datetime: 03/03/2023 17:16 VITAL SIGNS NBP Sys/Loida/Mean (mmHg): 110 : 54 : 67 Pulse: 53 Datetime: 03/02/2023 20:24 SpO2 (%): 98 Datetime: 03/02/2023 07:15 Stage of : Recovery Datetime: 03/02/2023 06:30 Respirations: 16 Temperature (C): 37.8 Temperature Route: Oral PAIN Pain Scale: 0 Pain Presence: None/Denies Pain Type: N/A Datetime: 03/02/2023 06:16 LaborFlag: Labor Datetime: 03/02/2023 06:00 Communication Comments: Dr. Meño at bedside for delivery. Datetime: 03/02/2023 05:44 MEDICATIONS Antibiotics: Clindamycin IV 900 mg Datetime: 03/02/2023 05:31 I/O Interventions: Lewis Discontinued Patient Care Comments: Patient moving arm during BP reading. COMMUNICATION Communication: RN at Bedside; RN Reviewed Strip Datetime: 03/02/2023 05:30 Frequency (min): unable to determine Quality: Strong Pattern: Normal: <= 5 Contractions in 10 Minutes Resting Tone (Palpate): Relaxed FHR Baseline Rate : 155 Variability: Moderate 6-25 bpm Accelerations: None Datetime: 03/02/2023 05:04 VAGINAL EXAM Dilatation (cm): 10.0 Effacement (%): 100 Station: 1 Exam by: Dionisio Ardon RN Vaginal Exam Comments: Patient consent obtained prior to SVE. Datetime: 03/02/2023 05:00 Duration (sec): 80-100 Decelerations: Early Datetime: 03/02/2023 04:22 Provider Reviewed Strip: No Provider Notified (Name): Dr Wilder Notification Reason: Status Update; Status; Labor Status; Membrane Status Datetime: 03/02/2023 03:56 Patient Position/Activity: Left Lateral Datetime: 03/02/2023 03:33 Pain Location: Abdomen Pain Goal: 3 Pain Relief Measures: BUZZSAW OPERATOR Use Pain Assessment Comments: Patient states she has intermittent pain/pressure with contractions. April ent encouraged to use BUZZSAW OPERATOR pump. Patient states pain is within acceptable range. Datetime: 03/02/2023 03:30 Monitor Interventions for UA: Ragan Adjusted Datetime: 03/02/2023 03:26 Vaginal Bleeding: Normal Show Datetime: 03/02/2023 03:08 Monitor Interventions for FHR: Ultrasound Adjusted Datetime: 03/02/2023 02:30 UTERINE ACTIVITY Monitor Mode: External Datetime: 03/02/2023 01:48 PATIENT CARE IV/Blood Work: IV Bolus Given ml @ 500 Datetime: 03/02/2023 01:21 Cervix, Consistency: Soft Cervix, Position: Midposition Datetime: 03/01/2023 23:32 Membrane Status: Ruptured Membranes Rupture Method: Artificial Amniotic Fluid Color: Particulate Meconium Amniotic Fluid Amount: Moderate Datetime: 03/01/2023 23:30 ASSESSMENT A Monitor Mode: External US Datetime: 03/01/2023 23:23 Anesthesia Comments: PCEA education performed and patient instructed on fall precautions. Patient s tates agreement to not attempt to get out of bed and will call for help if needed. Datetime: 03/01/2023 23:21 Epidural Procedure: Loading Dose Datetime: 03/01/2023 23:00 Comments: MHR as patient is sitting up for epidural Datetime: 03/01/2023 22:51 Antiemetics/Antacids: Zofran (mg) @ (Annotations: 4) Datetime: 03/01/2023 22:33 PROCEDURE TIME OUT Procedure Verify: Correct Patient Identity; Correct Side and Site are Marked; Accurate Procedure Co nsent Form; Agreement on Procedure to be Done; Correct Patient Position; Relevant Images and Results are Properly Labeled and Displayed; Addressed Need to Administer Antibiotics or Fluids for Irrigation ; Safety Precautions Based on Patient History or Medication Use ANESTHESIA Anesthesia Plans: Epidural Epidural Positioning: Sitting Datetime: 03/01/2023 22:30 FHR Baseline Changes: No Baseline Change Category: Category I Datetime: 03/01/2023 21:14 Membranes Ruptured Date/Time: 03/01/2023 23:32 Amniotic Fluid Odor: None
--- NOTE | 2023-03-07 13:38 | ANESTHESIA POST OP EVALUATION ---
Anesthesia Post Eval - Post Anesthesia Eval Vitals: Last Vital Signs Temp 36.8 C 03/03/23 14:43 Pulse 74 03/03/23 14:43 Resp 16 03/03/23 14:43 BP 119/66 03/03/23 14:43 Pulse Ox 100 03/03/23 14:43 O2 Flow Rate CV Function Including HR & BP: Stable Pain Control: Satisfactory Nausea & Vomiting: Negative Mental Status: Baseline Respiratory Status: Airway Patent Hydration Status: Satisfactory Anesthesia Complications: None
== END 2023-03-03 17:55 | disposition home or self-care (01) | DRG 807 ==
LOC: WFO 20:45 → FBP 20:46 → WFO 21:28 → FBP 21:29
PROVIDERS: ADMIT Obstetrics & Gynecology; ATTEND Obstetrics & Gynecology
PROC: 10907ZC Drainage of Amniotic Fluid, Therapeutic from Products of Conception, Via Natural or Artificial Opening (ICD-10-PCS; principal; 2023-03-02)
PROC: 10E0XZZ Delivery of Products of Conception, External Approach (ICD-10-PCS; 2023-03-02)
PROC: 0HQ9XZZ Repair Perineum Skin, External Approach (ICD-10-PCS; 2023-03-02)
DX: O99.824 Streptococcus B carrier state complicating childbirth (principal); Z37.0 Single live birth; O77.0 Labor and delivery complicated by meconium in amniotic fluid; O70.0 First degree perineal laceration during delivery; O99.214 Obesity complicating childbirth; Z3A.39 39 weeks gestation of pregnancy; Z88.0 Allergy status to penicillin
CPT/HCPCS: 36415; 59025; 59409; 85025; 86850; 86900; 86901; 96372; 99215; A9270; J7120; Q0162

== ENCOUNTER 2023-04-11 08:00 | Outpatient (CLI) | payer OTHER ==
[2023-04-11 23:37] LABS: BACTERIAL VAGINOSIS DNA NEGATIVE (NEGATIVE); CANDIDA GLABRATA DNA NEGATIVE (NEGATIVE); CANDIDA GROUP DNA NEGATIVE (NEGATIVE); CANDIDA KRUSEI DNA NEGATIVE (NEGATIVE); TRICHOMONAS VAGINALIS DNA NEGATIVE (NEGATIVE)
== END 2023-04-11 23:59 | disposition home or self-care (01) ==
LOC: LAB.WC 08:00
PROVIDERS: ATTEND Obstetrics & Gynecology
DX: N89.8 Other specified noninflammatory disorders of vagina (principal)
CPT/HCPCS: 81514

== ENCOUNTER 2023-04-23 23:35 | Emergency (ER) | payer OTHER ==
--- NOTE | 2023-04-23 23:58 | ED Physician Documentation ---
PD HPI CHEST PAIN - Stated complaint Stated Complaint: VOMIT/CHEST PX - Chief complaint Chief Complaint: Cardiac - History obtained from History obtained from: Patient - Additional information Additional information: 28-year-old female with no reported past medical history presents for approximately 3 episodes of midepigastric abdominal and chest pain with nausea and vomiting since 9 PM. Patient was at home her 2.5 mo old when symptoms started. No medications taken prior to arrival. Denies hx of abdominal surgeries. No other sick contacts, no new or strange foods. Review of Systems Constitutional: denies: Fever, Chills Cardiac: reports: Chest pain / pressure. denies: Palpitations, Calf pain GI: reports: Abdominal Pain, Nausea, Vomiting : denies: Dysuria, Frequency, Hesitancy Skin: denies: Rash, Lesions, Abrasion (s) Musculoskeletal: denies: Neck pain, Back pain, Extremity pain Neurologic: denies: Generalized weakness, Focal weakness, Numbness PD PAST MEDICAL HISTORY - Past Medical History Past Medical History: No Cardiovascular: None Respiratory: None - Past Surgical History Past Surgical History: No - Present Medications Home Medications: Ambulatory Orders Medication Instructions Recorded Confirmed Pnv No.95/Ferrous Fum/Folic AC 1 each PO DAILY 11/07/22 04/24/23 [ Tablet] Ibuprofen [Motrin] 600 mg PO Q6H PRN #30 tab 03/03/23 04/24/23 Dicyclomine [Bentyl] 1 - 2 tab PO QID PRN #20 cap 04/24/23 Ondansetron Odt [Zofran] 4 mg TL Q6H PRN #10 tablet 04/24/23 Sucralfate [Carafate] 1 gm PO ACHS #60 tablet 04/24/23 - Allergies Allergies/Adverse Reactions: Allergies Allergy/AdvReac Type Severity Reaction Status Date / Time Penicillins Allergy Rash Verified 04/24/23 00:05 tramadol Allergy Anxiety Verified 04/24/23 00:05 - Social History Does the pt smoke?: No Smoking Status: Never smoker Does the pt drink ETOH?: No Does the pt have substance abuse?: No PD ED PE NORMAL - Vitals Vital signs reviewed: Yes - General General: Alert and oriented X 3, No acute distress, Well developed/nourished - Neck Neck: No bony TTP - Cardiac Cardiac: RRR, Strong equal pulses - Respiratory Respiratory: No respiratory distress, Clear bilaterally - Abdomen Abdomen: Soft, Non tender, Non distended - Derm Derm: Normal color, Warm and dry, No rash - Extremities Extremities: No deformity, No tenderness to palpate, Normal ROM s pain, No edema - Neuro Neuro: Alert and oriented X 3, supervisor webbing 2-12 intact, No motor deficit, Normal speech Results - Vitals Vitals: Vital Signs - 24 hr 04/23/23 04/24/23 04/24/23 23:37 00:01 01:13 Temperature 36.3 C L Heart Rate 62 67 53 L Respiratory 18 13 13 Rate Blood Pressure 128/73 116/68 117/68 O2 Saturation 100 96 98 Oxygen O2 Source Room air - EKG (time done) 2313 EKG releavant findings:: EKG personally interpreted by author of this note. Relevant findings are: Rate: Rate (enter#) (63) Rhythm: NSR [place]: Normal Intervals: Normal [place] QRS: Normal Ischemia: Normal ST segments - Labs Labs: Laboratory Tests 04/23/23 04/23/23 04/24/23 23:50 23:50 00:00 WBC 12.3 H RBC 4.61 Hgb 13.2 Hct 40.5 MCV 87.9 MCH 28.6 MCHC 32.6 RDW 13.0 Plt Count 352 MPV 9.1 Neut # (Auto) 7.6 H Lymph # (Auto) 3.7 H [place] # (Auto) 0.7 Eos # (Auto) 0.2 Baso # (Auto) 0.1 Absolute Nucleated RBC 0.00 Nucleated RBC % 0.0 Sodium 141 Potassium 3.7 Chloride 106 Carbon Dioxide 27 Anion Gap 8.0 BUN 23 H Creatinine 0.7 Estimated GFR (MDRD) 100 Glucose 101 Calcium 10.1 Total Bilirubin 0.3 AST 30 ALT 30 Alkaline Phosphatase 70 Troponin I High Sens 2.3 Total Protein 7.9 Albumin 4.5 Globulin 3.4 Albumin/Globulin Ratio 1.3 Lipase 40 Urine Color Urine Clarity Urine pH Ur Specific [place] Urine Protein Urine Glucose (UA) Urine Ketones Urine Occult Blood Urine Nitrite Urine Bilirubin Urine Urobilinogen Ur Leukocyte Esterase Urine RBC Urine WBC Ur Squamous Epith Cells Urine Bacteria Urine Mucus Ur Microscopic Review Urine Culture Comments 04/24/23 00:50 WBC RBC Hgb Hct MCV MCH MCHC RDW Plt Count MPV Neut # (Auto) Lymph # (Auto) [place] # (Auto) Eos # (Auto) Baso # (Auto) Absolute Nucleated RBC Nucleated RBC % Sodium Potassium Chloride Carbon Dioxide Anion Gap BUN Creatinine Estimated GFR (MDRD) Glucose Calcium Total Bilirubin AST ALT Alkaline Phosphatase Troponin I High Sens Total Protein Albumin Globulin Albumin/Globulin Ratio Lipase Urine Color YELLOW Urine Clarity HAZY Urine pH 6.[address] 1.025 Urine Protein NEGATIVE Urine Glucose (UA) NEGATIVE Urine Ketones NEGATIVE Urine Occult Blood MODERATE H Urine Nitrite NEGATIVE Urine Bilirubin NEGATIVE Urine Urobilinogen 0.2 (NORMAL) Ur Leukocyte Esterase SMALL H Urine RBC 11-25 H Urine WBC 4-5 Ur Squamous Epith Cells MOD Squamous H Urine Bacteria Few Urine Mucus Few Strands Ur Microscopic Review INDICATED Urine Culture Comments NOT INDICATED PD Medical Decision Making - ED course Complexity details: reviewed results, re-evaluated patient, considered kenn hudson, d/w patient, d/w family ED course: Well-appearing patient with chest pain, nausea, vomiting, midepigastric pain. Abdomen is soft, no significant tenderness to palpation, no peritoneal signs. Low risk for ACS. Laboratory work is reviewed, there is mild leukocytosis, with WC count 13.2, however this is expected in acute vomiting. EKG Normal sinus rhythm without concerning findings. Chest x-ray negative for acute process. Patient received GI cocktail, Toradol, Zofran with improvement in symptoms. Patient tolerated p.o. without issue. Patient informed of all lab and imaging findings, will plan to discharge with antiemetics, antispasmodics, Carafate. Recommended PCP follow-up. Departure - Departure Disposition: 01 Home, Self Care Clinical Impression: Chest pain, Nausea & vomiting Condition: Stable Instructions: ED Chest Pain NonCardiac, ED Nausea Vomiting Prescriptions: Dicyclomine [Bentyl] 1 - 2 tab PO QID PRN #20 cap PRN Reason: Abdominal Pain Sucralfate [Carafate] 1 gm PO ACHS #60 tablet Ondansetron Odt [Zofran] 4 mg TL Q6H PRN #10 tablet PRN Reason: Nausea / Vomiting Print Language: Serbian Forms: PCP List
[2023-04-23 23:59] LABS: BASOPHILS # (AUTO) 0.1 10^3/uL (0.0-0.1); BASOPHILS % (AUTO) 0.4 %; EOSINOPHILS # (AUTO) 0.2 10^3/uL (0.0-0.7); EOSINOPHILS % (AUTO) 1.6 %; HCT - HEMATOCRIT 40.5 % (37.0-47.0); HGB - HEMOGLOBIN 13.2 g/dL (12.0-16.0); LYMPHOCYTES # (AUTO) 3.7 10^3/uL (1.5-3.5); LYMPHOCYTES % (AUTO) 30.2 %; MEAN CORPUSCULAR HEMOGLOBIN 28.6 pg (27.0-31.0); MEAN CORPUSCULAR HGB CONC 32.6 g/dL (32.0-36.0); MEAN CORPUSCULAR VOLUME 87.9 fL (81.0-99.0); MEAN PLATELET VOLUME 9.1 fL (7.9-10.8); MONOCYTES # (AUTO) 0.7 10^3/uL (0.0-1.0); MONOCYTES % (AUTO) 5.3 %; NEUTROPHILS # (AUTO) 7.6 10^3/uL (1.5-6.6); PLT - PLATELET COUNT 352 10^3/uL (130-450); RED BLOOD COUNT 4.61 10^6/uL (4.20-5.40); WHITE BLOOD COUNT 12.3 x10^3/uL (4.8-10.8)
[2023-04-24 00:17] LABS: ALBUMIN 4.5 g/dL (3.2-5.5); ALBUMIN/GLOBULIN RATIO 1.3 (1.0-2.2); BILIRUBIN,TOTAL 0.3 mg/dL (0.2-1.0); CALCIUM 10.1 mg/dL (8.5-10.3); CREATININE 0.7 mg/dL (0.6-1.3); POTASSIUM 3.7 mmol/L (3.5-4.5); TOTAL PROTEIN 7.9 g/dL (6.4-8.9)
[2023-04-24] MEDS: ONDANSETRON 4 MG/2 ML VIAL IVP STA (00:29)
[2023-04-24] MEDS: MAG HYDROX/AL HYDROX/SIMETH 30 ML UDC PO STA (00:29)
[2023-04-24] MEDS: LIDOCAINE VISCOUS 2% 15 ML ORAL SYRINGE MM STA (00:29)
[2023-04-24] MEDS: KETOROLAC 15 MG/ML VIAL IVP STA ×2 (00:30→01:53)
[2023-04-24] MEDS: SODIUM CHLORIDE 0.9% 1,000 ML IV STA (00:31)
[2023-04-24 01:02] LABS: BILIRUBIN,URINE NEGATIVE (NEGATIVE); GLUCOSE, URINE (UA) NEGATIVE (NEGATIVE); KETONES,URINE (UA) NEGATIVE (NEGATIVE); LEUKOCYTE ESTERASE, URINE SMALL (NEGATIVE); NITRITE,URINE NEGATIVE (NEGATIVE); OCCULT BLOOD,URINE MODERATE (NEGATIVE); PH,URINE 6.5 PH (5.0-7.5); PROTEIN,URINE NEGATIVE (NEGATIVE); UROBILINOGEN,URINE 0.2 (NORMAL) E.U./dL (NORMAL)
[2023-04-24 01:15] VITALS: O2SAT 98
--- NOTE | 2023-04-24 01:15 | XRAY Report ---
PROCEDURE: Chest 1V INDICATIONS: chest pain TECHNIQUE: One view of the chest was acquired. COMPARISON: 02/14/2022 FINDINGS: Surgical changes and devices: None. Lungs and pleura: No pleural effusions or pneumothorax. Lungs are clear. Mediastinum: Mediastinal contours appear normal. Heart size is normal. Bones and chest wall: No suspicious bony lesions. Overlying soft tissues appear unremarkable. IMPRESSION: Chest without acute cardiopulmonary abnormalities or focal airspace disease. Reviewed by: Steve Oliveros MD on 04/24/2023 1:14 AM PST Approved by: Steve Oliveros MD on 04/24/2023 1:[address] [facility] Station ID: [id number]
[2023-04-24 01:22] LABS: BACTERIA,URINE Few /HPF (None Seen); CLARITY,URINE HAZY (CLEAR); MUCUS,URINE Few Strands; SQUAMOUS EPITHELIAL CELL,UR MOD Squamous (<= Few)
[2023-04-24 02:32] VITALS: BP 98/76
== END 2023-04-24 02:18 | disposition home or self-care (01) ==
LOC: ED 23:35
DX: R07.9 Chest pain, unspecified (principal); R11.2 Nausea with vomiting, unspecified
CPT/HCPCS: 36415; 71045; 80053; 81001; 83690; 84484; 85025; 93005; 96374; 96375; 96376; 99284; A9270; 81003; 87086